=== PATIENT | female | born 1960 | race Caucasian/White ===

== ENCOUNTER 2016-08-25 12:28 | Day surgery (SDC) | payer OTHER ==
[2016-08-25] MEDS ORDERED: MIDAZOLAM 2 MG/2 ML VIAL ONE (13:04)
[2016-08-25] MEDS ORDERED: PROPOFOL 200 MG/20 ML VIAL ONE ×3 (13:07→13:40)
--- NOTE | 2016-08-25 14:15 | GPN ---
[f rep st] PROCEDURE NOTE PREPROCEDURE DIAGNOSIS: History of ulcerative colitis. POSTPROCEDURE DIAGNOSIS: A small rectal polyp, otherwise normal colonoscopy. PROCEDURE: Colonoscopy with biopsy. ANESTHESIA: Monitored anesthesia care. INDICATIONS: The patient is a 56-year-old female with a history of ulcerative colitis. Her ulcerat haley colitis was first diagnosed in 2006. Her last colonoscopy was in [address] Laura. That c olonoscopy there was erythema in the sigmoid colon and ascending colon. This pathology showed chron ic active colitis with acute cryptitis and focal crypt abscesses. She is referred for surveillance colonoscopy for meyers ulcerative colitis. The risks and benefits of the procedure were discussed with the patient. Consent obtained. Risks include, but are not limited to, bleeding, perforation, risk s associated with sedation. The patient is ASA class 3. DESCRIPTION OF PROCEDURE: The adult colonoscope was advanced into the terminal ileum, which appeare d normal. The ileocecal valve, appendiceal orifice, cecum, ascending colon, hepatic flexure, transv erse colon, splenic flexure, descending colon, sigmoid colon appeared normal. There was a small 1 m m polyp in the rectum which was removed using cold biopsy forceps. Biopsies were taken from the rig ht and left colon every 10 cm in 4-quadrant fashion for surveillance biopsies. Retroflexed views in the rectum showed grade 1 internal hemorrhoids. IMPRESSION: 1. No evidence of active colitis, status post right and left surveillance ulcerative colitis biopsi es. 2. A small rectal polyp, 1 mm, removed using cold biopsy forceps. 3. Grade 1 internal hemorrhoids. RECOMMENDATIONS: 1. Advance diet as tolerated. 2. Discharge to home with escort. 3. Follow up the final biopsy results. Results available within 10 days. 4. Repeat colonoscopy in 2 years for ulcerative colitis surveillance at the hospital assuming none of the biopsies show dysplasia. 5. Continue Lialda at the current dose. Follow up in GI clinic as previously scheduled for her [facility] erative colitis management. Thank you for allowing me to participate in the care of patient. Please do not hesitate to call isabella zarco questions. /[id number]/MODL
== END 2016-08-25 14:55 | disposition home or self-care (01) ==
LOC: FSGY 12:28
PROVIDERS: ATTEND Internal Medicine Gastroenterology
PROC: 0DBG8ZX Excision of Left Large Intestine, Via Natural or Artificial Opening Endoscopic, Diagnostic (ICD-10-PCS; principal; 2016-08-25 14:00)
PROC: 0DBF8ZX Excision of Right Large Intestine, Via Natural or Artificial Opening Endoscopic, Diagnostic (ICD-10-PCS; principal; 2016-08-25 14:00)
PROC: 0DBP8ZX Excision of Rectum, Via Natural or Artificial Opening Endoscopic, Diagnostic (ICD-10-PCS; principal; 2016-08-25 14:00)
DX: Z12.11 Encounter for screening for malignant neoplasm of colon (principal); K51.90 Ulcerative colitis, unspecified, without complications; K62.1 Rectal polyp; K64.0 First degree hemorrhoids
CPT/HCPCS: J2250; J2704